=== PATIENT | female | born 1980 | race African-American/Black ===

== ENCOUNTER 2023-06-16 13:54 | Emergency (ER) | payer OTHER, SELFPAY ==
[2023-06-16 13:56] VITALS: BP 135/85; PULSE 80; RESP 20; TEMP 36.6; O2SAT 96
--- NOTE | 2023-06-16 14:10 | ED.GIBLEED ---
HPI - GI Bleed General Chief complaint: GI Bleed <Elmo Mcneill APRN - Last Filed: 06/16/23 14:19> Stated complaint: Blood in stool <Elmo Mcneill APRN - Last Filed: 06/16/23 14:19> Time Seen by Provider: 06/16/23 14:05 <Elmo Mcneill APRN - Last Filed: 06/16/23 14:19> Focused HPI: Cindy is a 42-year-old female patient presenting to the emergency room today with possible blood in her stool. She reports that yesterday she noticed when she was wiping her but she had some bright on the toilet paper. Denies being on her menses. States that she wiped her front 1st and did knows the blood when she wiped her backside she noticed the blood. Denies any abdominal pain, nausea, vomiting, diarrhea, or rectal pain. No history GI bleed or colonoscopy in the past. Last bowel movement was 2 days ago and soft. Last menstrual period was last month. General: Well-developed, well nourished, in no apparent distress. Head: Normocephalic, atraumatic. Cardio: Regular rate and rhythm, s1 and s2 normal, no murmur appreciated. Resp: Clear to auscultation bilaterally, no rhonchi, rales, wheezing or rubs. Abdomen: Soft, pliable, bowel sounds present in all quadrants, non-tender to palpation, no organomegly, no CVAT tenderness. Rectal: No obvious external hemorrhoids, no obvious rectal bleeding visualized, Hemoccult negative Patient screened in triage and initial orders placed. Additional care and disposition to be based upon diagnostic testing and treatment. <Elmo Mcneill APRN - Last Filed: 06/16/23 14:19> History of Present Illness HPI Narrative: 42-year-old female presented emergency department for evaluation After finding some blood on the toilet paper after using the restroom. <Adelfo Torres MD - Last Filed: 06/16/23 18:08> Related Data Allergies/Adverse reactions: Allergies Allergy/AdvReac Type Severity Reaction Status Date / Time No Known Allergies Allergy Mild Verified 02/26/08 07:06 <Elmo Mcneill APRN - Last Filed: 06/16/23 14:19> Review of Systems Review of Systems: All systems reviewed & are unremarkable except as noted in HPI and below <Adelfo Torres MD - Last Filed: 06/16/23 18:08> Exam Narrative: APPEARANCE: Well appearing, no pain, no distress, well-nourished. HEAD: normocephalic, atraumatic. EYES: PERRLA/EOMI, conjunctivae clear. RESPIRATORY: Airway patent, respirations nonlabored. Clear to auscultation bilaterally, no rales, rhonchi, wheezing. CARDIOVASCULAR: Regular rate and rhythm without murmurs rubs or gallops. ABDOMINAL: Soft, nontender, nondistended, normal bowel sounds MUSCULOSKELETAL: Moves all extremities. Strength/ROM intact, No edema, No calf tenderness. NEURO: Alert. Cranial nerves II through XII intact. Good gait. Good coordination Rectal exam: Hemoccult negative with no anal fissures and no external hemorrhoids SKIN: Warm, dry. Normal Color PSYCHIATRIC: Normal affect/mood. <Adelfo Torres MD - Last Filed: 06/16/23 18:08> Course Course Emergency Course: patient was updated results of her workup and was discharged home <Adelfo Torres MD - Last Filed: 06/16/23 18:08> Vital Signs Vital signs: Vital Signs Temperature 97.9 F 06/16/23 13:56 Pulse Rate 80 06/16/23 13:56 Respiratory Rate 20 06/16/23 13:56 Blood Pressure 135/85 06/16/23 13:56 Pulse Oximetry 96 06/16/23 13:56 Oxygen Delivery Room Air 06/16/23 13:56 Temperature 97.9 F 06/16/23 13:56 Pulse Rate 80 06/16/23 17:01 Respiratory Rate 20 06/16/23 17:01 Blood Pressure 131/87 06/16/23 17:01 Pulse Oximetry 100 06/16/23 17:01 Oxygen Delivery Room Air 06/16/23 13:56 <Elmo Mcneill APRN - Last Filed: 06/16/23 14:19> Vital Signs Temperature 97.9 F 06/16/23 13:56 Pulse Rate 80 06/16/23 13:56 Respiratory Rate 20 06/16/23 13:56 Blood Pressure 135/85 06/16/23 13:56 Pulse Oximetry
[2023-06-16 14:34] LABS: Appearance Urine Clear (Clear); Bilirubin Urine Negative (Negative); Blood Urine Negative (Negative); Color Urine Yellow (Yellow); Glucose Urine UA Negative (Negative); Ketones Urine Negative (Negative); Leukocyte Esterase Ur Negative LEU/UL (Negative); Nitrate Urine Negative (Negative); Protein Urine Negative (Negative); Urobilinogen Urine 0.2 mg/dL (<2.0); pH Urine 6.5 (5.0-9.0)
[2023-06-16 14:46] LABS: Basophils Absolute Auto 0.1 K/mm3 (0.0-0.1); Basophils Percent Auto 0.6 % (0.2-1.2); Eosinophils Absolute Auto 0.2 K/mm3 (0-0.3); Hematocrit 37.3 % (37.0-47.0); Immature Granulocyte Absolute 0.02 K/mm3 (0.00-0.031); Immature Granulocyte Percent A 0.3 % (0-0.5); Lymphocytes Absolute Auto 2.23 K/mm3 (0.9-3.2); Lymphocytes Percent Auto 28.3 % (18.3-44.2); Mean Corpuscular HGB Conc 32.2 g/dl (32-36); Mean Corpuscular Hemoglobin 29.3 pg (26-34); Mean Corpuscular Volume 91.2 fl (80-100); Mean Platelet Volume 10.8 fl (7.4-10.4); Monocytes Absolute Auto 0.7 K/mm3 (0.1-0.6); Monocytes Percent Auto 8.3 % (2.6-8.5); Neutrophils Absolute Auto 4.8 K/mm3 (1.3-6.7); Neutrophils Percent Auto 60.5 % (45.5-73.1); Platelet Count Result 314 k/mm3 (150-375); Red Blood Count 4.09 M/mm3 (4.2-5.4); Red Cell Distribution Width 12.5 % (11.5-14.5); White Blood Count 7.9 K/mm3 (4.5-10.0)
[2023-06-16 14:57] LABS: Add Urine Microscopic? NO
[2023-06-16 14:58] LABS: Alanine Aminotransferase 17 U/L (6-35); Albumin Level 4.3 g/dL (3.5-5.1); Alkaline Phosphatase 105 U/L (38-126); Anion Gap 4 mmol/L (4-12); Aspartate Amino Transferase 21 U/L (14-36); Bilirubin,Total 0.3 mg/dL (0.2-1.3); Blood Urea Nitrogen 13 mg/dL (7-17); Calcium 9.5 mg/dL (8.4-10.2); Carbon Dioxide 27 mmol/L (22-30); Chloride 104 mmol/L (98-107); Estimated CRCL calculation 100 ml/min; Estimated Glomerular Filt Rate > 60; Glucose 96 mg/dL (65-110); Sodium 135 mmol/L (137-145)
[2023-06-16 16:21] LABS: Partial Thromboplastin Time 28.1 Seconds (22.3-36.8); Prothrombin Time 13.5 Seconds (11.1-14.7)
[2023-06-16 17:01] VITALS: BP 131/87; PULSE 80; RESP 20; O2SAT 100
== END 2023-06-16 17:15 | disposition home or self-care (01) ==
LOC: ANHED 17:05
PROVIDERS: Nurse Practitioner Family; Emergency Provider Emergency Medicine
DX: K62.5 Hemorrhage of anus and rectum (principal)
CPT/HCPCS: 36415; 80053; 81003; 85025; 85610; 85730; 99283

== ENCOUNTER 2023-11-02 11:23 | Emergency (ER) | payer SELFPAY ==
--- NOTE | ~2023-11-02 | XR_ITS ---
EXAMINATION: XR chest 2V DATE: 11/02/2023 13:18 INDICATION: Cough. Assess for pneumonia. TECHNIQUE: PA and lateral views of the chest were obtained. COMPARISON: Chest radiograph dated 03/30/2023 FINDINGS: The lungs remain clear with no focal airspace opacities, pulmonary edema, pleural effusion or pneumot horax. The cardiomediastinal silhouette is normal. Cholecystectomy clips in the right upper quadrant. IMPRESSION: 1. No acute cardiopulmonary disease. Reviewed, dictated and finalized at location A.
[2023-11-02 11:30] VITALS: BP 134/71; PULSE 78; RESP 18; TEMP 36.4; O2SAT 100
--- NOTE | 2023-11-02 13:06 | ED.URI ---
HPI - URI/Sore Throat General Chief Complaint: Upper Respiratory Infection Stated Complaint: uri Time Seen by Provider: 11/02/23 12:31 History of Present Illness HPI Narrative: 43-year-old female presenting with URI symptoms. States that she has had a persistent cough for the last 2-3 days. Also complains of sore throat and mucous production. States that she has central chest pain whenever she coughs. Denies shortness of breath, fevers, nausea or vomiting. She has had several episodes of diarrhea. She is concerned that she has COVID. Related Data Allergies Allergy/AdvReac Type Severity Reaction Status Date / Time No Known Allergies Allergy Mild Verified 02/26/08 07:06 Review of Systems Review of Systems: All systems reviewed & are unremarkable except as noted in HPI and below Exam Narrative: GENERAL: Well-appearing, in no acute distress, pleasant and cooperative HEAD: Normocephalic, atraumatic. EYES: PERRLA and EOMI. ENT: Nares clear, no rhinorrhea or epistaxis. No posterior pharyngeal erythema or edema, no exudates NECK: Supple. CHEST: Clear to auscultation. No respiratory distress. HEART: Regular rate and rhythm ABDOMEN: Soft, nontender, nondistended EXTREMITIES: Normal range of motion. SKIN: Warm, dry, no rash. NEURO: No focal deficits. Alert and oriented x3. PSYCH: Normal mood and affect. Course Vital Signs Vital signs: Vital Signs Temperature 97.6 F 11/02/23 11:30 Pulse Rate 78 11/02/23 11:30 Respiratory Rate 18 11/02/23 11:30 Blood Pressure 134/71 11/02/23 11:30 Pulse Oximetry 100 11/02/23 11:30 Oxygen Delivery Room Air 11/02/23 11:30 Temperature 98.2 F 11/02/23 14:43 Pulse Rate 80 11/02/23 14:43 Respiratory Rate 19 11/02/23 14:43 Blood Pressure 136/64 11/02/23 14:43 Pulse Oximetry 100 11/02/23 14:43 Oxygen Delivery Room Air 11/02/23 13:34 MDM - URI/Sore Throat MDM Narrative Medical decision making narrative: 43-year-old female presenting with URI symptoms. Vitals are stable. Exam remarkable for the above. Chest x-ray without acute abnormalities. Patient is negative for COVID, influenza, RSV. Discussed the reassuring workup with the patient. Feel she is safe for outpatient management. Will send in for some Arvindon Farshad as her biggest complaint is her cough. Will provide number for New PCP, advised close follow-up. Appropriate return precautions given. Discharged in stable condition. Differential Diagnosis Differential diagnosis: Likely upper respiratory infection, viral infection and influenza Lab Data Attestation: I reviewed the patient's lab results. Labs: Lab Results 11/02/23 Range/Units 13:25 Influenza A (RT-PCR) Negative (Negative) Influenza B (RT-PCR) Negative (Negative) RSV (RT-PCR) Negative (Negative) SARS-CoV-2 RNA (RT-PCR) Negative (Negative) Imaging Data Radiologist's impression: ITS Impressions Chest X-Ray 11/02/23 13:20 IMPRESSION: 1. No acute cardiopulmonary disease. Critical Care Time Critical Care Time Critical Care Time: No Discharge Plan Discharge Clinical Impression: Upper respiratory infection Patient Disposition: Home, Self-Care Condition: Stable Instructions: Antibiotic Form, Viral Syndrome (ED) Additional Instructions: You are negative for COVID, influenza, RSV. Your chest x-ray is normal. You may use the prescribed cough medicine as needed. Drinking tea with honey may also be helpful. Use Tylenol and ibuprofen for pain control. Follow-up closely with primary care at the number below. If your symptoms worsen or other concerning symptoms arise, please return to the ER. Prescriptions: New benzonatate 100 mg capsule 100 mg PO TID PRN (Reason: cough) Qty: 20 0RF Follow-up/Referrals: Gilles Morales MD [Physician] - Stand Alone Forms: Work/School Release IP
[2023-11-02] MEDS: ACETAMINOPHEN 500 MG TABLET 1000 MG PO (13:23)
[2023-11-02] MEDS: IBUPROFEN 400 MG TABLET PO (13:23)
[2023-11-02 13:34] VITALS: O2SAT 98
[2023-11-02 14:09] LABS: Influenza A QL RT-PCR Negative (Negative); Influenza B QL RT-PCR Negative (Negative); RSV RNA, RT-PCR Negative (Negative); SARS-CoV-2 RNA PCR Negative (Negative)
[2023-11-02 14:43] VITALS: BP 136/64; PULSE 80; RESP 19; TEMP 36.8; O2SAT 100
== END 2023-11-02 14:47 | disposition home or self-care (01) ==
PROVIDERS: Emergency Provider Emergency Medicine
DX: J06.9 Acute upper respiratory infection, unspecified (principal); Z20.822 Contact with and (suspected) exposure to COVID-19
CPT/HCPCS: 71046; 87637; 99283; A9270